=== PATIENT | female | born 1975 | race African-American/Black ===

== ENCOUNTER 2016-06-01 14:10 | Emergency (ER) | payer MEDICAID ==
[~2016-06-01] VITALS: Ht 157.5 cm; Wt 75.0 kg
[2016-06-01 14:15] VITALS: BP 135/79
[2016-06-01] MEDS ORDERED: ACETAMINOPHEN 325MG TABLET PO STA (15:37)
[2016-06-01] MEDS ORDERED: ONDANSETRON HCL 4MG/2ML VIAL IV ONE (15:45)
[2016-06-01 16:11] LABS: BASOPHILS % 0.8 % (0.0-2.0); EOSINOPHILS % 6.7 % (0.0-5.0); HEMATOCRIT. 33.2 % (36.0-48.0); HEMOGLOBIN. 10.9 g/dL (12.0-16.0); LYMPHOCYTES % 22.6 % (20.0-50.0); MEAN CORPUSCULAR HEMOGLOBIN 28.5 pg (28.0-32.0); MEAN CORPUSCULAR HGB CONC 32.7 g/dL (31.0-37.0); MEAN CORPUSCULAR VOLUME 87.2 fL (81.0-99.0); MEAN PLATELET VOLUME 8.8 fl (7.4-10.4); MONOCYTES % 8.6 % (2.0-8.0); NEUTROPHILS % 61.3 % (40.0-76.0); PLATELET 247 x1000/uL (130-400); RED BLOOD CELL COUNT 3.81 mill/uL (4.2-5.4); RED CELL DISTRIBUTION WIDTH 15.4 % (11.6-14.6); WHITE BLOOD COUNT 8.7 x1000/uL (4.5-11.0)
[2016-06-01] MEDS ORDERED: SODIUM CHLORIDE 0.9% 1,000 ML IV ONE (16:15)
[2016-06-01 16:26] LABS: CHLORIDE 107 mEq/L (98-107); INDEX HEMOLYSI 1 (1-3); INDEX ICTERIC 1 (1-4); INDEX LIPEMIC 1 (1-3)
[2016-06-01 16:36] LABS: ANION GAP 13; CALCIUM 8.4 mg/dL (8.5-10.1); CARBON DIOXIDE 24 mEq/L (21-32); UREA NITROGEN BLOOD 14 mg/dL (7-21); eGFR > 60 mL/min (>60)
[2016-06-01 16:48] LABS: CLARITY URINE TURBID (CLEAR); COLOR URINE YELLOW (YELLOW); GLUCOSE URINE NEGATIVE (NEGATIVE); KETONES URINE NEGATIVE (NEGATIVE); LEUKOCYTE ESTERASE URINE 2+ (NEGATIVE); NITRITE URINE NEGATIVE (NEGATIVE); OCCULT BLOOD URINE 2+ (NEGATIVE); PH URINE 5.5 (4.5-8.0); PROTEIN URINE NEGATIVE (NEGATIVE); SPECIFIC GRAVITY URINE 1.033 (1.005-1.030); UROBILINOGEN URINE 0.2 E.U./dL (0.2-1.0)
[2016-06-01 16:49] LABS: B-HCG QUANTITATIVE 11318 mIU/mL (<3)
[2016-06-01 17:10] LABS: BACTERIA URINE 3+; RBC URINE 0-2 /hpf (0-2); SQUAMOUS EPITHELIAL CELL URINE 1+ /lpf (RARE/1+)
== END 2016-06-01 19:33 | disposition home or self-care (01) ==
LOC: ER 14:12
DX: O20.0 Threatened abortion (principal); O23.41 Unspecified infection of urinary tract in pregnancy, first trimester; Z3A.01 Less than 8 weeks gestation of pregnancy
CPT/HCPCS: 36415; 76801; 76817; 80048; 81001; 81025; 84702; 85025; 86850; 86900; 86901; 96361; 96374; 99285; J2405; J7030; Z7610

== ENCOUNTER 2016-06-11 17:03 | Emergency (ER) | payer MEDICAID ==
[~2016-06-11] VITALS: Ht 160 cm; Wt 81.0 kg
[2016-06-11] MEDS ORDERED: ACETAMINOPHEN 325MG TABLET PO STA (19:57)
[2016-06-11 20:20] LABS: BASOPHILS % 0.6 % (0.0-2.0); EOSINOPHILS % 5.9 % (0.0-5.0); HEMATOCRIT. 34.5 % (36.0-48.0); HEMOGLOBIN. 11.2 g/dL (12.0-16.0); LYMPHOCYTES % 26.4 % (20.0-50.0); MEAN CORPUSCULAR HEMOGLOBIN 28.5 pg (28.0-32.0); MEAN CORPUSCULAR HGB CONC 32.6 g/dL (31.0-37.0); MEAN CORPUSCULAR VOLUME 87.5 fL (81.0-99.0); MEAN PLATELET VOLUME 8.7 fl (7.4-10.4); MONOCYTES % 8.7 % (2.0-8.0); NEUTROPHILS % 58.4 % (40.0-76.0); PLATELET 248 x1000/uL (130-400); RED BLOOD CELL COUNT 3.94 mill/uL (4.2-5.4); RED CELL DISTRIBUTION WIDTH 15.8 % (11.6-14.6); WHITE BLOOD COUNT 10.6 x1000/uL (4.5-11.0)
[2016-06-11 20:22] LABS: ANION GAP 12; CALCIUM 8.5 mg/dL (8.5-10.1); CARBON DIOXIDE 23 mEq/L (21-32); CHLORIDE 108 mEq/L (98-107); INDEX HEMOLYSI 1 (1-3); INDEX ICTERIC 1 (1-4); INDEX LIPEMIC 1 (1-3)
[2016-06-11 20:29] LABS: UREA NITROGEN BLOOD 12 mg/dL (7-21); eGFR > 60 mL/min (>60)
[2016-06-11 20:42] LABS: B-HCG QUANTITATIVE 9415 mIU/mL (<3)
[2016-06-11 22:22] VITALS: BP 128/71
== END 2016-06-11 22:55 | disposition home or self-care (01) ==
LOC: ER 17:04
DX: O20.0 Threatened abortion (principal); Z3A.08 8 weeks gestation of pregnancy; R10.9 Unspecified abdominal pain
CPT/HCPCS: 36415; 76801; 80048; 84702; 85025; 99285

== ENCOUNTER 2016-06-11 23:50 | Emergency (ER) | payer MEDICAID ==
[~2016-06-11] VITALS: Ht 149.9 cm; Wt 77.0 kg
[2016-06-12 00:56] VITALS: BP 151/69
== END 2016-06-12 02:27 | disposition home or self-care (01) ==
LOC: ER 23:50
DX: O20.0 Threatened abortion (principal); Z3A.00 Weeks of gestation of pregnancy not specified
CPT/HCPCS: 99281

== ENCOUNTER 2021-12-20 17:45 | Emergency (ER) | payer MEDICAID ==
[~2021-12-20] VITALS: Ht 157.5 cm; Wt 109.0 kg
[2021-12-20 18:08] VITALS: BP 95/75
== END 2021-12-20 22:50 | disposition left against medical advice (07) ==
LOC: ER 17:45
DX: Z53.21 Procedure and treatment not carried out due to patient leaving prior to being seen by health care provider (principal)

== ENCOUNTER 2023-07-23 19:37 | Emergency (ER) | payer MEDICAID ==
[~2023-07-23] VITALS: Ht 162.6 cm; Wt 95.0 kg
[2023-07-23 19:59] VITALS: TEMP 98.5; O2SAT 98
[2023-07-23 21:27] LABS: EOSINOPHILS % 9.4 % (0.0-5.0); HEMATOCRIT. 34.5 % (36.0-48.0); HEMOGLOBIN. 11.4 g/dL (12.0-16.0); LYMPHOCYTES % 25.8 % (20.0-50.0); MEAN CORPUSCULAR HEMOGLOBIN 29.9 pg (28.0-32.0); MEAN CORPUSCULAR HGB CONC 33.2 g/dL (31.0-37.0); MEAN CORPUSCULAR VOLUME 90.2 fL (81.0-99.0); MEAN PLATELET VOLUME 8.8 fl (7.4-10.4); NEUTROPHILS % 55.8 % (40.0-76.0); PLATELET 312 x1000/uL (130-400); RED BLOOD CELL COUNT 3.83 mill/uL (4.2-5.4); RED CELL DISTRIBUTION WIDTH 15.3 % (11.6-14.6); WHITE BLOOD COUNT 7.4 x1000/uL (4.5-11.0)
[2023-07-23 21:30] LABS: CHLORIDE 106 mEq/L (98-107); POTASSIUM 3.9 mEq/L (3.5-5.1); SODIUM 138 mEq/L (136-145)
[2023-07-23 21:31] LABS: CARBON DIOXIDE 25 mEq/L (21-32)
[2023-07-23 21:32] LABS: CALCIUM 8.7 mg/dL (8.7-10.4)
[2023-07-23 21:36] LABS: CREATININE 0.7 mg/dL (0.6-1.0)
[2023-07-23 21:37] LABS: GLUCOSE 93 mg/dL (70-105); UREA NITROGEN BLOOD 10 mg/dL (9-23)
[2023-07-23 21:38] LABS: ALANINE AMINOTRANSFERASE 32 IU/L (10-49); ALBUMIN 4.3 g/dL (3.2-4.8); ASPARTATE AMINOTRANSFERASE 37 IU/L (<34)
[2023-07-23 21:39] LABS: BILIRUBIN DIRECT < 0.1 mg/dL (<=3.0); BILIRUBIN TOTAL 0.2 mg/dL (0.1-1.0); PROTEIN TOTAL 7.8 g/dL (6.0-8.3)
[2023-07-23 21:51] VITALS: BP 151/78; PULSE 65; RESP 18
[2023-07-23] MEDS ORDERED: BENZ100C86 MT (22:07)
[2023-07-23] MEDS ORDERED: ACET-2708 MT (22:07)
[2023-07-23 22:57] LABS: CLARITY URINE CLEAR (CLEAR); COLOR URINE YELLOW (YELLOW); GLUCOSE URINE NEGATIVE (NEGATIVE); KETONES URINE NEGATIVE (NEGATIVE); LEUKOCYTE ESTERASE URINE NEGATIVE (NEGATIVE); NITRITE URINE NEGATIVE (NEGATIVE); OCCULT BLOOD URINE 1+ (NEGATIVE); PH URINE 5.5 (4.5-8.0); PROTEIN URINE NEGATIVE (NEGATIVE); SPECIFIC GRAVITY URINE 1.023 (1.005-1.030)
[2023-07-23 23:20] LABS: BACTERIA URINE 1+; SQUAMOUS EPITHELIAL CELL URINE 2+ /lpf (RARE/1+)
== END 2023-07-23 23:01 | disposition home or self-care (01) ==
LOC: ER 19:37
DX: B34.9 Viral infection, unspecified (principal)
CPT/HCPCS: 80076; 80048; 81003; 81025; 85025; 36415; 71045; 93005; 99285; Z7610 ×2

== ENCOUNTER 2024-08-18 14:40 | Emergency (ER) | payer MEDICAID ==
[~2024-08-18] VITALS: Ht 149.9 cm; Wt 91.0 kg
[~2024-08-18 14:40] MED LIST: ACET-2708 MT
[2024-08-18 15:07] VITALS: O2SAT 97
[2024-08-18 15:09] VITALS: TEMP 36.9
[2024-08-18 16:39] VITALS: BP 149/78; PULSE 70; RESP 18; O2SAT 100
== END 2024-08-18 16:42 | disposition home or self-care (01) ==
LOC: ER 14:40
DX: Z48.00 Encounter for change or removal of nonsurgical wound dressing (principal)
CPT/HCPCS: 99281

== ENCOUNTER 2025-02-20 17:47 | Emergency (ER) | payer MEDICAID ==
[~2025-02-20] VITALS: Ht 162.6 cm; Wt 114.0 kg
[2025-02-20 18:00] VITALS: O2SAT 98
[2025-02-20 19:55] LABS: BASOPHILS % 0.7 % (0.0-2.0); EOSINOPHILS % 4.8 % (0.0-5.0); HEMATOCRIT. 36.0 % (36.0-48.0); HEMOGLOBIN. 11.4 g/dL (12.0-16.0); LYMPHOCYTES % 22.7 % (20.0-50.0); MEAN PLATELET VOLUME 8.9 fl (7.4-10.4); MONOCYTES % 8.5 % (2.0-8.0); NEUTROPHILS % 63.3 % (40.0-76.0); PLATELET 265 x1000/uL (130-400); RED BLOOD CELL COUNT 4.10 mill/uL (4.2-5.4); RED CELL DISTRIBUTION WIDTH 16.7 % (11.6-14.6)
[2025-02-20 20:07] LABS: INR 1.0
[2025-02-20 20:12] LABS: CREATININE 0.6 mg/dL (0.6-1.0)
[2025-02-20 20:13] LABS: UREA NITROGEN BLOOD 8 mg/dL (9-23)
[2025-02-20 20:14] LABS: TROPONIN I HIGH SENSITIVITY < 4 ng/L (3.0-34)
[2025-02-20] MEDS: IBUPROFEN 600MG TABLET PO ONE (20:26)
[2025-02-20 20:45] VITALS: BP 150/88; PULSE 72; RESP 18; TEMP 36.7; O2SAT 95
== END 2025-02-20 21:11 | disposition home or self-care (01) ==
LOC: ER 17:47
DX: R07.89 Other chest pain (principal); Z98.890 Other specified postprocedural states
CPT/HCPCS: 36415; 71045; 80048; 83880; 84484; 85025; 93005; 99285